=== PATIENT | male | born 1940 | race Caucasian/White ===

== ENCOUNTER → 2021-06-16 | Day surgery (SDC) | payer MEDICARE, BC ==
[~2021-06-16] MED LIST: Ketamine 200 MG/20 ML MDV ONE; Propofol 200 MG/20 ML SDV ONE; fentaNYL 100 MCG/2 ML SDV ONE
[2021-06-16] MEDS: Lactated Ringers 1,000 ML IV SCH (08:01)
[2021-06-16 09:49] VITALS: BP 148/73; PULSE 66
--- NOTE | 2021-06-16 13:43 | OR ---
DATE OF OPERATION: 06/16/2021 PREOPERATIVE DIAGNOSIS: GASTROESOPHAGEAL REFLUX DISEASE. POSTOPERATIVE DIAGNOSIS: GASTROESOPHAGEAL REFLUX DISEASE. SURGEON: Mikey Mccord MD PROCEDURE: DIAGNOSTIC ESOPHAGOGASTRODUODENOSCOPY WITH BIOPSIES X4, ANTONIO. ANESTHESIA: MAC. COMPLICATIONS: None. SPECIMEN: 1. Duodenal bulb biopsy x1. 2. Antral biopsy x1. 3. Antral ANTONIO. 4. Fundal biopsy x1. 5. Distal esophageal biopsy x1. FINDINGS: 1. Full-length diagnostic EGD. 2. Mild diffuse gastritis/duodenitis. 3. Small hiatal hernia with spontaneous GERD and minimal distal esophagitis. RECOMMENDATIONS: Medical followup with Dennis Palmer. INDICATIONS: The patient was having some persistent burning in his chest with reflux symptoms. Dennis Palmer sent him for diagnostic EGD. DESCRIPTION OF PROCEDURE: The patient was prepped and draped, placed in the left lateral decubitus position. A lubricated Olympus gastroscope was inserted over a bite, advanced to cricopharyngeus and easily intubated into the esophagus. Esophageal lining was benign for the most part of its entire course. The patient's Z-line was crisp around 35 cm with a small hiatal hernia present. There was one small area of reflux esophagitis. Biopsy was taken. No signs of Arias changes. There was no stricturing or ulceration. The scope was advanced into the stomach, through the pylorus, and into the second portion of the duodenum. This appeared benign. The duodenal bulb had some diffuse and mild duodenitis. We took a biopsy of that. The scope was brought back into the stomach and retroflexed. The upper fundus and cardia were hard to visualize as the patient had a lot a residual gastric contents there. I irrigated as best I could, but no gross abnormalities were seen other than the small hernia. Upon straightening, there appeared to be diffuse and mild active gastritis of the fundus and antrum. We did a biopsy of each area of technical sales representatives areas and took a CLOtest. No other lesions were seen. Air was suctioned. Scope removed without complication. RAMÓN/EMA /[id number]
== END ==
LOC: CC.SDS 07:39
PROVIDERS: ATTEND Family Medicine
DX: K21.00 Gastro-esophageal reflux disease with esophagitis, without bleeding (principal); I78.1 Nevus, non-neoplastic; K44.9 Diaphragmatic hernia without obstruction or gangrene; Z88.8 Allergy status to other drugs, medicaments and biological substances; Z79.82 Long term (current) use of aspirin; Z79.899 Other long term (current) drug therapy; Z90.49 Acquired absence of other specified parts of digestive tract; Z98.890 Other specified postprocedural states; Z87.891 Personal history of nicotine dependence
CPT/HCPCS: 87081; 88305; 88342; J2704; J3010; J7120

== ENCOUNTER 2022-05-18 05:22 | Emergency (ER) | payer MEDICARE, BC ==
[~2022-05-18 05:22] MED LIST changes: -Ketamine 200 MG/20 ML MDV ONE; +Ondansetron 4 MG/2 ML SDV IVPUSH STA; -Propofol 200 MG/20 ML SDV ONE; -fentaNYL 100 MCG/2 ML SDV ONE; +fentaNYL 50 MCG/ML SDV IVPUSH ONE
[2022-05-18 05:42] LABS: CHLORIDE,CL 94 mEq/L (98-106); SODIUM,NA 130 mEq/L (136-145)
[2022-05-18 05:43] LABS: ESTIMATED GFR 77 mL/min (>=60)
[2022-05-18] MEDS ORDERED: Iopamidol 755 Mg/ML 100 ML Bottle IVPUSH ONE (06:02)
[2022-05-18 06:28] VITALS: BP 142/67; PULSE 112
== END 2022-05-18 07:20 | disposition home or self-care (01) ==
LOC: CC.ED 07:20
DX: K59.03 Drug induced constipation (principal); T50.905A Adverse effect of unspecified drugs, medicaments and biological substances, initial encounter; R33.9 Retention of urine, unspecified; Z88.5 Allergy status to narcotic agent; Z79.82 Long term (current) use of aspirin; Z79.899 Other long term (current) drug therapy; Z20.822 Contact with and (suspected) exposure to COVID-19
CPT/HCPCS: 36415; 51702; 74177; 80053; 81003; 83690; 85025; 86140; 96374; 96375; 99284; J2405; J3010; Q9967; U0002; 99283

== ENCOUNTER 2023-03-17 09:30 | Emergency (ER) | payer MEDICARE, BC ==
[2023-03-17] MEDS: Ondansetron 4 MG/2 ML SDV IVPUSH ONE (09:55)
[2023-03-17 09:57] LABS: BASOPHILS ABSOLUTE AUTO 0.01 10^3/uL (0.00-0.50); BASOPHILS PERCENT AUTO 0.1 % (0-1); EOSINOPHILS ABSOLUTE AUTO 0.09 10^3/uL (0.00-1.50); EOSINOPHILS PERCENT AUTO 1.1 % (0-6); HEMOGLOBIN 13.3 g/dL (14.0-18.0); IMMATURE GRAN ABSOLUTE AUTO 0.01 10^3/uL (0.00-0.49); IMMATURE GRAN PERCENT AUTO 0.1 % (0.0-4.9); LYMPHOCYTES ABSOLUTE AUTO 0.75 10^3/uL (0.60-5.00); LYMPHOCYTES PERCENT AUTO 9.1 % (24-44); MEAN CORPUSCULAR HGB CONC 33.3 g/dL (32.0-36.0); MEAN CORPUSCULAR VOLUME 93.2 fL (83.0-97.0); MONOCYTES PERCENT AUTO 4.8 % (0-10); NEUTROPHILS PERCENT AUTO 84.8 % (41-71); PLATELET COUNT,PLT 197 10^3/uL (150-400); RED BLOOD CELL COUNT 4.29 x10^6/uL (4.50-6.00); WHITE BLOOD CELL COUNT,WBC 8.3 10^3/uL (4.0-11.0)
[2023-03-17] MEDS: Sodium Chloride 0.9% 1,000 ML IV ONE (09:57)
[2023-03-17] MEDS ORDERED: Iopamidol 755 Mg/ML 100 ML Bottle IVPUSH ONE ×2 (10:01)
[2023-03-17 10:14] LABS: ALANINE AMINOTRANSFERASE,ALT 26 U/L (12-78); ALBUMIN 3.7 g/dL (3.4-5.0); ALKALINE PHOSPHATASE 67 U/L (46-116); ASPARTATE AMNIOTRANSFERASE,AST 18 U/L (15-37); BILIRUBIN TOTAL 0.7 mg/dL (0.0-1.0); BLOOD UREA NITROGEN,BUN 23 mg/dL (7-18); CALCIUM 9.3 mg/dL (8.4-10.1); CARBON DIOXIDE,CO2 29 mmol/L (21-32); CHLORIDE,CL 97 mEq/L (98-106); CREATININE 1.3 mg/dL (0.7-1.3); GLUCOSE RANDOM 151 mg/dL (75-99); LIPASE 113 U/L (73-393); MAGNESIUM 2.1 mg/dL (1.8-2.4); POTASSIUM,K 5.1 mEq/L (3.5-5.0); PROTEIN TOTAL,TP 7.9 g/dL (6.4-8.2); SODIUM,NA 133 mEq/L (136-145)
[2023-03-17 10:15] LABS: ESTIMATED GFR 56 mL/min (>=60)
[2023-03-17 10:28] VITALS: BP 155/78; PULSE 66
[2023-03-17 10:53] LABS: APPEARANCE,URINE CLEAR (CLEAR); BILIRUBIN,URINE NEGATIVE (NEGATIVE); COLOR,URINE YELLOW (YELLOW); GLUCOSE,URINE NEGATIVE (NEGATIVE); KETONES,URINE NEGATIVE (NEGATIVE); LEUKOCYTE ESTERASE,URINE NEGATIVE (NEGATIVE); NITRITE,URINE NEGATIVE (NEGATIVE); OCCULT BLOOD,URINE NEGATIVE (NEGATIVE); PROTEIN,URINE NEGATIVE (NEGATIVE); UROBILINOGEN,URINE 0.2 EU/dL (0.2-1.0)
[2023-03-17 11:02] LABS: BACTERIA,URINE NOT SEEN /HPF (NOT SEEN); RBC,URINE NOT SEEN /HPF (0-5); WBC,URINE NOT SEEN /HPF (0-5)
[2023-03-17 11:03] LABS: EPITHELIAL CELLS,URINE OCCASIONAL /HPF (NOT SEEN)
[2023-03-17] MEDS: Take Home: Ondansetron 4 MG Tab.DIS, 2 Tab Pack PO ONE (11:50)
== END 2023-03-17 12:00 | disposition home or self-care (01) ==
LOC: CC.ED 09:30
DX: K29.00 Acute gastritis without bleeding (principal); Z88.5 Allergy status to narcotic agent; Z20.822 Contact with and (suspected) exposure to COVID-19
CPT/HCPCS: 36415; 74177; 80053; 81001; 83605; 83690; 83735; 84484; 85025; 93005; 93010; 96374; 99284; 99284-25; A9270-GY; J2405; J7030; U0002